=== PATIENT | male | born 1980 | race Caucasian/White ===

== ENCOUNTER 2019-09-08 07:28 | Emergency (ER) | payer SELFPAY | END 2019-09-08 08:07 | disposition home or self-care (01) | LOC: ERS 07:28 | DX: R33.9 Retention of urine, unspecified (principal); F17.210 Nicotine dependence, cigarettes, uncomplicated | CPT/HCPCS: 99283 ==

== ENCOUNTER 2020-08-10 16:31 | Emergency (ER) | payer SELFPAY ==
--- NOTE | 2020-08-10 18:08 | ULT ---
SCROTAL ULTRASOUND: 08/10/20 INDICATIONS: Left testicular pain and swelling. Both testicles have normal and symmetric size and appearance. Color Doppler and spectral analysis dem onstrates blood flow to both testicles. There are small bilateral hydroceles. There is abnormal echogenicity inferior and lateral to the left testicle with increased blood flow. T his suggests an enlarged epididymis with increased blood flow suggesting inflammation or infection. The left hydrocele shows septations indicating a complex hydrocele. IMPRESSION: Enlarged echogenic epididymis on the left with increased vascularity suggesting epididymitis. There a re bilateral hydroceles with a complex hydrocele on the left. POS: [facility]
[2020-08-10 18:11] LABS: Bacteria/HPF 4+ HPF (None Seen); Bilirubin Negative (Negative); Blood, Urine Negative (Negative); Clarity Clear (Clear); Glucose, Urine (Dipstick) Normal (Negative); Ketone, Urine Trace mg/dL (Negative); Leukocyte 75 Leu/uL (Negative); Nitrite Negative (Negative); Protein, Urine (Dipstick) 30 mg/dL (Neg-Trace); RBC/HPF 0-3 HPF (0-3); Squamous Epithelial 0-3 HPF (0-3); pH, Urine 5.5 (5.0-9.0)
[2020-08-10] MEDS ORDERED: Ketorolac Tromethamine 30 MG/ML VIAL ONE (19:22)
== END 2020-08-10 19:55 | disposition home or self-care (01) ==
LOC: ERS 16:31
DX: N45.1 Epididymitis (principal); I86.1 Scrotal varices; F17.210 Nicotine dependence, cigarettes, uncomplicated
CPT/HCPCS: 76870; 81003; 81015; 87077; 87086; 87186; 93976; 96372; J1885